=== PATIENT | male | born 1945 ===

== ENCOUNTER 2016-11-28 12:30 | Emergency (ER) | payer MEDICARE, OTHER ==
[2016-11-28 12:43] VITALS: BP 157/92; PULSE 74; RESP 78; TEMP 97.1; O2SAT 94
--- NOTE | 2016-11-28 12:56 | ED PDOC ---
HPI: CCC, URI, Sore Throat Time Seen by Provider: 11/28/16 12:47 Chief Complaint (Nursing): ENT Problem Chief Complaint (Provider): Congestion History Per: Patient History/Exam Limitations: no limitations Onset/Duration Of Symptoms: Days (x 3) Current Symptoms Are (Timing): Still Present Associated Symptoms: Sinus Drainage, Nasal Congestion Additional Complaint(s): Eder is a 71 y/o male who presents to the ED complaining of congestion and post-nasal drip, ongoing for 3 days. Denies fever and cough. Patient admits he lives with many cats and has had sinus problems for awhile. Has never had allergy testing. PMD: Linwood Jaimes Past Medical History Reviewed: Historical Data, Nursing Documentation, Vital Signs Vital Signs: Last Vital Signs Temp 97.1 F L 11/28/16 12:40 Pulse 74 11/28/16 12:40 Resp 78 H 11/28/16 12:40 BP 157/92 H 11/28/16 12:40 Pulse Ox 94 L 11/28/16 13:03 - Medical History PMH: HTN - Family History Family History: States: Unknown Family Hx - Social History Ex-Smoker (has not smoked in the last 12 months): Yes Alcohol: None Drugs: Denies - Home Medications Home Medications: Ambulatory Orders Medication Instructions Recorded Amoxicillin/Clavulanate Pota 1 tab PO BID #20 tab 03/16/14 [Augmentin 875 mg-125 mg] Sulfamethoxazole/Trimethopri 1 tab PO BID #20 tab 03/16/14 [Bactrim Ds 800 mg-160 mg] Albuterol HFA [Ventolin HFA 90 2 puff IH Q6 #200 puff 11/28/16 mcg/actuation (8 g)] Cetirizine HCl [Zyrtec] 10 mg PO DAILY #30 cap 11/28/16 Guaifenesin [Mucinex] 1,200 mg PO BID #14 ter 11/28/16 - Allergies Allergies/Adverse Reactions: Allergies Allergy/AdvReac Type Severity Reaction Status Date / Time No Known Allergies Allergy Verified 03/16/14 16:11 Review of Systems ROS Statement: Except As Marked, All Systems Reviewed And Found Negative Constitutional: Negative for: Fever, Chills ENT: Positive for: Nose Congestion, Other (Post-nasal drip) Respiratory: Negative for: Cough Physical Exam - Reviewed Nursing Documentation Reviewed: Yes Vital Signs Reviewed: Yes - Physical Exam Appears: Positive for: Well, Non-toxic, No Acute Distress Head Exam: Positive for: ATRAUMATIC, NORMAL INSPECTION, NORMOCEPHALIC Skin: Positive for: Normal Color, Warm, Dry Eye Exam: Positive for: EOMI, Normal appearance, PERRL ENT: Positive for: Normal ENT Inspection, Pharynx Is (Clear). Negative for: Other (sinus tenderness) Neck: Positive for: Normal, Painless ROM Cardiovascular/Chest: Positive for: Regular Rate, Rhythm. Negative for: Murmur Respiratory: Positive for: Normal Breath Sounds. Negative for: Accessory Muscle Use, Respiratory Distress Extremity: Positive for: Normal ROM. 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 Patient will be discharged home with Rx for Albuterol inhaler, Zyrtec, and Mucinex. Counseling was provided and all questions were answered regarding diagnosis and need for follow up with PMD for allergy testing. There is agreement to discharge plan. Return if symptoms persist or worsen. Scribe Attestation: Documented by Lilian Alejandro, acting as a scribe for Kenya Vilchis PA-C Provider Scribe Attestation: All medical record entries made by the Scribe were at my direction and personally dictated by me. I have reviewed the chart and agree that the record accurately reflects my personal performance of the history, physical exam, medical decision making, and the department course for this patient. I have also personally directed, reviewed, and agree with the discharge instructions and disposition. Disposition - Clinical Impression Clinical Impression: Allergic rhinosinusitis - Patient ED Disposition Is Patient to be Admitted: No Counseled Patient/Family Regarding: Diagnosis, Need For Followup, Rx Given - Disposition Referrals: [facility] [Outside] Disposition: Routine/Home Disposition Time: 12:58 Condition: STABLE Additional Instructions: please follow up with an sales and service advisor to assess if you have an allergy to cats Prescriptions: Albuterol HFA [Ventolin HFA 90 mcg/actuation (8 g)] 2 puff IH Q6 #200 puff Cetirizine HCl [Zyrtec] 10 mg PO DAILY #30 cap Guaifenesin [Mucinex] 1,200 mg PO BID #14 ter Instructions: Rhinosinusitis (ED) Forms: [facility] (Estonian)
== END 2016-11-28 13:25 | disposition home or self-care (01) ==
LOC: H.ER 12:30
DX: J30.9 Allergic rhinitis, unspecified (principal); I10 Essential (primary) hypertension

== ENCOUNTER 2018-06-14 19:14 | Emergency (ER) | payer MEDICARE, OTHER ==
[2018-06-14 19:24] VITALS: TEMP 98.2
--- NOTE | 2018-06-14 20:18 | ED PDOC ---
HPI: Hypertension/Hypotension Time Seen by Provider: 06/14/18 19:26 Chief Complaint (Nursing): High Blood Pressure Chief Complaint (Provider): High Blood Pressure History Per: Patient History/Exam Limitations: no limitations Onset/Duration Of Symptoms: Days (today) Current Symptoms Are (Timing): Still Present Additional Complaint(s): 72 year old male with a history of hypertension and dyslipidemia presents to the ED with elevated blood pressure reading. Patient reports he took Mucinex earlier today and this afternoon he checked his blood pressure and noti shyam it was elevated. He is aware that Mucinex may have caused the elevated blood pressure. Patient reports some congestion, prompting him to take the medication. He is otherwise healthy with no cough, fever, shortness of breath. Patient took an extra dose of losartan and came to the ED for further evaluation. PMD: none provided Past Medical History Reviewed: Historical Data, Nursing Documentation, Vital Signs Vital Signs: Last Vital Signs Temp 98.2 F 06/14/18 19:19 Pulse 92 H 06/14/18 19:19 Resp 18 06/14/18 19:19 BP 176/100 H 06/14/18 19:45 Pulse Ox 96 06/14/18 19:19 - Medical History PMH: HTN Denies: Chronic Kidney Disease Other PMH: dyslipidemia - Surgical History Other surgeries: sinus surgery x12 years ago - Family History Family History: States: Unknown Family Hx - Social History Current smoker - smoking cessation education provided: No Ex-Smoker (has not smoked in the last 12 months): No Alcohol: None Drugs: Denies - Immunization History Hx Tetanus Toxoid Vaccination: (UTD, last year) - Home Medications Home Medications: Ambulatory Orders Medication Instructions Recorded Amoxicillin/Clavulanate Pota 1 tab PO BID #20 tab 03/16/14 [Augmentin 875 mg-125 mg] Sulfamethoxazole/Trimethopri 1 tab PO BID #20 tab 03/16/14 [Bactrim Ds 800 mg-160 mg] Cetirizine HCl [Zyrtec] 10 mg PO DAILY #30 cap 11/28/16 Guaifenesin [Mucinex] 1,200 mg PO BID #14 ter 11/28/16 RX: Albuterol HFA [Ventolin HFA 90 2 puff IH Q6 #200 puff 11/28/16 mcg/actuation (8 g)] - Allergies Allergies/Adverse Reactions: Allergies Allergy/AdvReac Type Severity Reaction Status Date / Time No Known Allergies Allergy Verified 06/14/18 19:19 Review of Systems ROS Statement: Except As Marked, All Systems Reviewed And Found Negative Constitutional: Negative for: Fever ENT: Positive for: Nose Congestion Respiratory: Negative for: Cough, Shortness of Breath Physical Exam - Reviewed Nursing Documentation Reviewed: Yes Vital Signs Reviewed: Yes - Physical Exam Appears: Positive for: Non-toxic, No Acute Distress Head Exam: Positive for: ATRAUMATIC, NORMOCEPHALIC Skin: Positive for: Normal Color, Warm, Dry Eye Exam: Positive for: Normal appearance, EOMI, PERRL Neck: Positive for: Normal Cardiovascular/Chest: Positive for: Regular Rate, Rhythm. Negative for: Murmur Respiratory: Positive for: Normal Breath Sounds. Negative for: Respiratory Distress Gastrointestinal/Abdominal: Positive for: Normal Exam, Soft. Negative for: Tenderness Extremity: Positive for: Normal ROM (upper and lower). Negative for: Pedal Edema, Deformity Neurological/Psych: Positive for: Awake, Alert, Oriented (x3) - Laboratory Results Result Diagrams: 06/14/18 20:00 06/14/18 20:00 - ECG O2 Sat by Pulse Oximetry: 96 (RA) Pulse Ox Interpretation: Normal Medical Decision Making Medical Decision Making: Time: 1932 Impression: 72 y/o male with likely drug realted hypertension Plan: --labs --EKG Time:2158 --Blood pressure remains within reasonable range for this patient and he remains asymptomatic. Provider discussed likely reaction to mucinex and patient was encouraged to avoid said medication. Patient medically cleared for discharge home. Diagnoses hypertension. -- Scribe Attestation: Documented by Floridalma Stone, acting as a scribe for Ari Osborne MD. Provider Scribe Attestation: All medical record entries made by the Scribe were at my direction and personally dictated by me. I have reviewed the chart and agree that the record accurately reflects my personal performance of the history, physical exam, medical decision making, and the department course for this patient. I have also personally directed, reviewed, and agree with the discharge instructions and disposition. Disposition - Clinical Impression Clinical Impression: Hypertension - Disposition Disposition Time: 21:59 Condition: IMPROVED Instructions: High Blood Pressure in Adults Forms: [facility] (Korean)
[2018-06-14 20:22] LABS: BASO % 0.6 % (0.0-2.0); EOS # 0.2 K/uL (0.0-0.7); EOS % 2.6 % (0.0-4.0); HEMOGLOBIN 13.3 g/dL (12.0-18.0); LYMPH # 1.8 K/uL (1.0-4.3); LYMPH % 21.5 % (20.0-40.0); MEAN CELL VOLUME 84.3 fl (80.0-94.0); MEAN CORPUSCULAR HGB CONC 33.2 g/dL (33.0-37.0); MEAN PLATELET VOLUME 7.6 fl (7.2-11.7); MONO # 0.8 K/uL (0.0-0.8); MONO % 9.9 % (0.0-10.0); NEUT # 5.5 K/uL (1.8-7.0); NEUT % 65.4 % (50.0-75.0); RBC 4.76 Mil/uL (4.40-5.90); RED CELL DISTRIBUTION WIDTH 14.7 % (11.5-14.5); WHITE BLOOD COUNT 8.4 K/uL (4.8-10.8)
[2018-06-14 20:25] LABS: URINE BILIRUBIN NEGATIVE (NEGATIVE); URINE BLOOD NEGATIVE (NEGATIVE); URINE CLARITY CLEAR (Clear); URINE COLOR COLORLESS (YELLOW); URINE GLUCOSE (UA) NEG (NEGATIVE); URINE LEUKOCYTE ESTERASE NEG Leu/uL (Negative); URINE PROTEIN NEGATIVE (NEGATIVE); URINE UROBILINOGEN 0.2-1.0 mg/dL (0.2-1.0)
[2018-06-14 20:31] LABS: ALB/GLOB RATIO 1.3 (1.0-2.1); ALBUMIN 4.2 g/dL (3.5-5.0); ALT/SGPT 28 U/L (21-72); AST/SGOT 27 U/L (17-59); BLOOD UREA NITROGEN 17 mg/dl (9-20); CALCIUM 9.6 mg/dL (8.4-10.2); GFR NON-AFRICAN AMERICAN > 60
[2018-06-14 21:01] VITALS: BP 148/94; PULSE 76; RESP 15
[2018-06-14 22:36] VITALS: O2SAT 96
--- NOTE | 2018-06-15 18:41 | CARD ---
APPROVED REPORT Date of service: 06/14/2018 EKG Measurement Heart [id number] <Conclusion> Normal sinus rhythm Incomplete right bundle branch block Otherwise normal ECG
== END 2018-06-14 21:54 | disposition home or self-care (01) ==
LOC: H.ER 19:14
DX: I10 Essential (primary) hypertension (principal)